=== PATIENT | female | born 1935 | race Caucasian/White ===

== ENCOUNTER 2016-06-20 10:35 | Emergency (ER) | payer MEDICARE ==
[~2016-06-20] VITALS: Ht 157.5 cm; Wt 100.0 kg
[~2016-06-20 10:35] MED LIST: AMLODIPINE5 MG PO; ASPIRIN325 MG PO; CARVEDILOL25 MG PO; CLONIDINE0.1 MG PO; HYDROCHLOR12.5 MG/CA PO; KLOR-CON 1010 ME1 PO; LISINOP/HCTZ1 TA1 PO; LISINOPRIL20 MG PO; LORTAB 10-325 M1 TAB PO; METFORMIN500 MG PO; PERCOCET1 TA4 PO; TRAMADOL HCL50 MG PO
[2016-06-20] MEDS ORDERED: OXYCODONE HCL5 MG PO (11:26)
[2016-06-20 11:45] LABS: ALBUMIN 3.8 g/dL (3.2-5.0); ALKALINE PHOSPHATASE 64 u/l (38-126); ANION GAP 14 (6-22 (CALC)); BILIRUBIN, TOTAL 0.6 mg/dL (0.0-1.4); BUN 10 mg/dL (8-23); BUN/CREATININE RATIO 21 (12-20 (CALC)); CALCIUM 8.9 mg/dL (8.4-10.2); CARBON DIOXIDE 23 mmol/l (22-30); CHLORIDE 101 mmol/l (95-108); CREATININE 0.5 mg/dL (0.5-1.0); GFR > 60 ML/MIN (>=60 (CALC)); GFR FOR AFR.AMER. > 60 ML/MIN (>=60 (CALC)); GLUCOSE 125 mg/dL (82-115); POTASSIUM 3.4 mmol/l (3.5-5.1); SGOT/AST 18 u/l (9-36); SGPT/ALT 26 u/l (11-66); SODIUM 135 mmol/l (137-146); TOTAL PROTEIN 6.2 g/dL (6.3-8.2)
[2016-06-20 11:53] LABS: HEMATOCRIT 38.5 % (37.0-47.0); HEMOGLOBIN 13.2 g/dl (12.0-16.0); IMMATURE GRANULOCYTES 0.4 % (0.0-1.0); MEAN CELL VOLUME 96.3 fL CALC (80.0-100.0); MEAN CORPUSCULAR HGB CONC 34.3 g/L CALC (32.0-36.0); NEUT# 10.03 thou/uL (2.00-7.15)
[2016-06-20 11:56] LABS: MYOGLOBIN 41 ng/mL (0 - 62)
[2016-06-20 12:58] LABS: URINE BILIRUBIN - DIPSTICK NEGATIVE (NEGATIVE); URINE BLOOD DIPSTICK TRACE-INTACT (NEGATIVE); URINE COLOR YELLOW; URINE GLUCOSE - DIPSTICK NEGATIVE (NEGATIVE); URINE KETONE 40 mg/dL (NEGATIVE); URINE NITRITE - DIPSTICK NEGATIVE (Negative); URINE PROTEIN - DIPSTICK NEGATIVE (NEG-TRACE); URINE SPECIFIC GRAVITY <=1.005; URINE UROBILINOGEN - DIPSTICK 0.2 E.U./dL (0.2)
[2016-06-20 13:01] LABS: URINE LEUK ESTERASE LARGE (NEGATIVE)
[2016-06-20 13:02] LABS: URINE CLARITY SLIGHT CLOUDY
[2016-06-20 13:12] LABS: URINE RBC 0-2 RBC/hpf (0-5); URINE SQUAMOUS EPITHELIAL CELL MODERATE EPI/hpf (0-FEW); URINE TRANSITIONAL EPI. CELLS FEW hpf
[2016-06-20 13:13] LABS: URINE BACTERIA MODERATE hpf
[2016-06-20] MEDS ORDERED: CIPROFLOXACN500 MG PO (13:58)
[2016-06-20 14:07] VITALS: BP 113/54
== END 2016-06-20 14:56 | disposition home or self-care (01) ==
LOC: ED 10:35 → ED-I 13:00 → ED 14:56
PROVIDERS: Emergency Medicine
DX: I48.91 Unspecified atrial fibrillation (principal); N39.0 Urinary tract infection, site not specified; I10 Essential (primary) hypertension; E11.9 Type 2 diabetes mellitus without complications; B96.1 Klebsiella pneumoniae [K. pneumoniae] as the cause of diseases classified elsewhere

== ENCOUNTER 2018-03-06 15:50 | Emergency (ER) | payer MEDICARE ==
[~2018-03-06] VITALS: Ht 157.5 cm; Wt 100.0 kg
[~2018-03-06 15:50] MED LIST changes: +CIPROFLOXACN500 MG PO; +OXYCODONE HCL5 MG PO
[2018-03-06 19:21] LABS: HEMATOCRIT 33.8 % (37.0-47.0); HEMOGLOBIN 11.5 g/dl (12.0-16.0); IMMATURE GRANULOCYTES 0.3 % (0.0-5.0); MEAN CELL VOLUME 98.5 fL CALC (80.0-100.0); MEAN CORPUSCULAR HGB 33.5 pG CALC (26.0-32.0); NEUT# 10.03 thou/uL (2.00-7.15); RED BLOOD COUNT 3.43 mill/uL (4.20-5.60); RED CELL DISTRI WIDTH 13.4 % (11.5-15.5)
[2018-03-06 19:33] LABS: ALKALINE PHOSPHATASE 47 u/l (38-126); AMYLASE 70 u/l (30-110); ANION GAP 13 (6-22 (CALC)); BILIRUBIN, TOTAL 0.7 mg/dL (0.0-1.4); BUN 16 mg/dL (8-23); BUN/CREATININE RATIO 28 (12-20 (CALC)); CARBON DIOXIDE 30 mmol/l (22-30); CHLORIDE 99 mmol/l (95-108); CREATININE 0.6 mg/dL (0.5-1.0); GFR > 60 ML/MIN (>=60 (CALC)); GFR FOR AFR.AMER. > 60 ML/MIN (>=60 (CALC)); LIPASE 62 u/l (23-300); POTASSIUM 4.1 mmol/l (3.5-5.1); SGOT/AST 34 u/l (9-36); SODIUM 137 mmol/l (137-146); TOTAL PROTEIN 6.7 g/dL (6.3-8.2)
[2018-03-06] MEDS ORDERED: PROTONIX40 MG PO (21:58)
[2018-03-06 21:59] LABS: URINE BILIRUBIN - DIPSTICK NEGATIVE (NEGATIVE); URINE BLOOD DIPSTICK SMALL (NEGATIVE); URINE COLOR YELLOW; URINE GLUCOSE - DIPSTICK NEGATIVE (NEGATIVE); URINE KETONE 15 mg/dL (NEGATIVE); URINE NITRITE - DIPSTICK NEGATIVE (Negative); URINE PROTEIN - DIPSTICK NEGATIVE (NEG-TRACE); URINE SPECIFIC GRAVITY 1.015; URINE UROBILINOGEN - DIPSTICK 0.2 E.U./dL (0.2)
[2018-03-06 22:00] VITALS: BP 145/72
[2018-03-06 22:02] LABS: URINE LEUK ESTERASE SMALL (NEGATIVE)
[2018-03-06 22:05] LABS: URINE SQUAMOUS EPITHELIAL CELL FEW EPI/hpf (0-FEW); URINE WBC 20-50 WBC/hpf (0-5)
[2018-03-07] MEDS ORDERED: ZOFRAN ODT4 MG PO (03:17)
[2018-03-07] MEDS ORDERED: CIPROFLOXACN500 MG PO (03:17)
== END 2018-03-06 22:15 | disposition home or self-care (01) ==
LOC: ED 15:50
PROVIDERS: Emergency Medicine
DX: R10.84 Generalized abdominal pain (principal); N39.0 Urinary tract infection, site not specified; I10 Essential (primary) hypertension; E11.9 Type 2 diabetes mellitus without complications
CPT/HCPCS: Q9967; S0164

== ENCOUNTER 2018-03-10 08:39 | Observation (INO) | payer MEDICARE ==
[~2018-03-10] VITALS: Ht 157.5 cm; Wt 100.0 kg
[~2018-03-10 08:39] MED LIST changes: +PROTONIX40 MG PO; +ZOFRAN ODT4 MG PO
--- NOTE | 2018-03-10 08:45 | NUR ---
PT TO ROOM VIA WHEELCHAIR FOR BEDSIDE TRIAGE.
--- NOTE | 2018-03-10 09:05 | NUR ---
PT REPORTS CONTINUED ABD PAIN TO THE UMBILICAL AREA. ABD SOFT, TENDER UPON PALPATION TO UMBILICAL AREA. PT REPORTS LAST BM WAS 6 DAYS PRIOR. PT DENIES ANY URINARY FREQUENCY AT THIS TIME. PT AND DAUGHTER AWARE OF PLAN OF CARE AND WAIT TIME. CALL [facility] WITHIN REACH.
[2018-03-10] MEDS ORDERED: ALPRAZOLAM0.25 MG PO (09:07)
[2018-03-10] MEDS ORDERED: XALATAN 0.005%2.5 ML OU (09:09)
[2018-03-10] MEDS ORDERED: TIMOLOL 0.25%5 ML OT (09:10)
[2018-03-10] MEDS ORDERED: FERRAPLUS 90 PO (09:11)
[2018-03-10] MEDS ORDERED: OMEGA 31000 MG PO (09:11)
[2018-03-10] MEDS ORDERED: MELATONIN5 MG PO (09:12)
[2018-03-10] MEDS ORDERED: CALCIUM600 M1 PO (09:13)
[2018-03-10] MEDS ORDERED: CENTRUM PO (09:13)
[2018-03-10] MEDS ORDERED: VITAMIN D400 UNI1 PO (09:14)
[2018-03-10 09:50] LABS: HEMATOCRIT 33.8 % (37.0-47.0); HEMOGLOBIN 11.7 g/dl (12.0-16.0); IMMATURE GRANULOCYTES 0.4 % (0.0-5.0); MEAN CELL VOLUME 97.7 fL CALC (80.0-100.0); MEAN CORPUSCULAR HGB 33.8 pG CALC (26.0-32.0); MEAN CORPUSCULAR HGB CONC 34.6 g/L CALC (32.0-36.0); NEUT# 9.61 thou/uL (2.00-7.15); RED BLOOD COUNT 3.46 mill/uL (4.20-5.60); RED CELL DISTRI WIDTH 12.9 % (11.5-15.5)
--- NOTE | 2018-03-10 09:54 | NUR ---
STRAIGHT CATH URINE SAMPLE COLLECTED BY CARYN LUQUE. PT TOLERATED WELL.
[2018-03-10 10:01] LABS: ALBUMIN 3.6 g/dL (3.2-5.0); ALKALINE PHOSPHATASE 45 u/l (38-126); ANION GAP 12 (6-22 (CALC)); BILIRUBIN, TOTAL 0.8 mg/dL (0.0-1.4); BUN 23 mg/dL (8-23); BUN/CREATININE RATIO 36 (12-20 (CALC)); CARBON DIOXIDE 30 mmol/l (22-30); CHLORIDE 94 mmol/l (95-108); CREATININE 0.6 mg/dL (0.5-1.0); GFR > 60 ML/MIN (>=60 (CALC)); GFR FOR AFR.AMER. > 60 ML/MIN (>=60 (CALC)); LIPASE 202 u/l (23-300); POTASSIUM 3.5 mmol/l (3.5-5.1); SGOT/AST 20 u/l (9-36); SODIUM 133 mmol/l (137-146); TOTAL PROTEIN 5.9 g/dL (6.3-8.2)
--- NOTE | 2018-03-10 10:05 | NUR ---
PT REPROTS NAUSEA FROM PO CONTRAST. MD NOTIFED. VERBAL ORDER RECIEVED FOR ZOFRAN 4 MG, IVP.
[2018-03-10 10:29] LABS: URINE BILIRUBIN - DIPSTICK NEGATIVE (NEGATIVE); URINE BLOOD DIPSTICK NEGATIVE (NEGATIVE); URINE COLOR YELLOW; URINE GLUCOSE - DIPSTICK NEGATIVE (NEGATIVE); URINE KETONE NEGATIVE (NEGATIVE); URINE LEUK ESTERASE NEGATIVE (NEGATIVE); URINE NITRITE - DIPSTICK NEGATIVE (Negative); URINE PH 6.5 (4.5-8.0); URINE PROTEIN - DIPSTICK NEGATIVE (NEG-TRACE); URINE SPECIFIC GRAVITY >=1.030
--- NOTE | 2018-03-10 10:48 | NUR ---
PT PAIN NOW 2/10 AND PT RESTING COMFORTABLY IN STRETCHER. PT TOLERATING PO CONTRAST. CALL [facility] WITHIN REACH, PT AWARE OF PENDING RESULTS.
--- NOTE | 2018-03-10 11:04 | NUR ---
PT COMPLETED PO CONTRAST. RT TECH NOTIFIED. PT DAUGHTER AT BEDSIDE. BOTH ARE AWARE OF PENDING RESULTS AND WAIT TIME, CALL [facility] WITHIN REACH.
--- NOTE | 2018-03-10 11:35 | NUR ---
PT REPORTS CONTINUED NAUSEA. MD NOTIFED, AWAITING NEW ORDERS.
--- NOTE | 2018-03-10 11:47 | NUR ---
PT MEDICATED WITH PHENERGAN PER ORDERED. PT TO CT SCAN IN STABLE CONDITION.
--- NOTE | 2018-03-10 12:30 | NUR ---
PT REPORTS INDIGESTION. PT RESTING IN STRETCHER IN NAD, HICCUPS NOTED. PT AWARE OF PENDING RESUTLS AND WAIT TIME.
--- NOTE | 2018-03-10 13:00 | NUR ---
MD AT BEDSIDE TO DISCUSS RESULTS AND PROBABLE PLAN OF CARE WITH PT.
--- NOTE | 2018-03-10 13:10 | NUR ---
DAUGHTER AT BEDSIDE AND IS AWARE OF PLAN TO TAKE PT TO OR. MD AT BEDSIDE TO DISCUSS RESULTS.
--- NOTE | 2018-03-10 13:46 | NUR ---
OR NURSE AT BEDSIDE. REPORT GIVEN.
--- NOTE | 2018-03-10 13:50 | NUR ---
PT LEFT TO OR IN STABLE CONDITION WITH CARYN WALKER.
--- NOTE | 2018-03-10 14:22 | NUR ---
REPORT TO SLOANE SILVEIRA.
[2018-03-10 16:10] VITALS: BP 153/61
== END 2018-03-10 16:24 | disposition expired ==
LOC: ED 08:39 → ED-I 13:06 → ED 13:47 → MS2 13:48
PROVIDERS: Emergency Medicine; ADMIT Internal Medicine; ATTEND Internal Medicine
PROC: 0BH17EZ Insertion of Endotracheal Airway into Trachea, Via Natural or Artificial Opening (ICD-10-PCS; principal; 2018-03-10)
PROC: 5A12012 Performance of Cardiac Output, Single, Manual (ICD-10-PCS; 2018-03-10)
DX: K42.0 Umbilical hernia with obstruction, without gangrene (principal); E11.9 Type 2 diabetes mellitus without complications; J68.1 Pulmonary edema due to chemicals, gases, fumes and vapors; T17.818A Gastric contents in other parts of respiratory tract causing other injury, initial encounter; I10 Essential (primary) hypertension; M19.90 Unspecified osteoarthritis, unspecified site; X58.XXXA Exposure to other specified factors, initial encounter; Y92.234 Operating room of hospital as the place of occurrence of the external cause
CPT/HCPCS: Q9967